=== PATIENT | male | born 1995 | race Caucasian/White ===

== ENCOUNTER 2018-07-28 20:14 | Emergency (ER) | payer SELFPAY ==
[2018-07-28 20:24] VITALS: BP 142/79
[2018-07-28] MEDS ORDERED: Fluorescein Sodium TOPICAL* 1 MG TEST STRIP OPHTHALMIC ONE (21:23)
[2018-07-28] MEDS ORDERED: Tetracaine 0.5% OPTH.SOL 15ML* BTL RIGHT EYE ONE (21:23)
[2018-07-28] MEDS ORDERED: Cyclopentolate 1% OPTH.SOL* 2 ML BTL RIGHT EYE ONE (21:24)
--- NOTE | 2018-07-28 21:34 | ED ---
Throat Pain/Nasal Congestion - HPI Summary HPI Summary: 22-year-old male presents with potential foreign body in right eye. He states his grinding last night and feels like he got something in his eye. He admits to some blurry vision. He states he has history of migraines feels like one of his migraines with this headache and some nausea. He states this does not feel like a corneal flash burn which he has had in the past. Doesn't wear glasses or contacts. tetanus up-to-date. Has no medical conditions. was seen in and had his eye staining and zaki lens placed - History of Current Complaint Chief Complaint: EDEyeProblem Time Seen by Provider: 07/28/18 21:17 - Allergies/Home Medications Allergies/Adverse Reactions: Allergies Allergy/AdvReac Type Severity Reaction Status Date / Time Dust Allergy Eyes Uncoded 01/27/15 21:10 Itchy/Swollen/Red/Watery Hay Allergy Eyes Uncoded 01/27/15 21:10 Itchy/Swollen/Red/Watery Home Medications: Home Medications NK [No Home Medications Reported] 07/28/18 [History Confirmed 07/28/18] PMH/Surg Hx/FS Hx/Imm Hx Endocrine/Hematology History: Denies: Hx Diabetes, Hx Thyroid Disease Cardiovascular History: Denies: Hx Congestive Heart Failure, Hx Deep Vein Thrombosis, Hx Hypertension , Hx Myocardial Infarction, Hx Pacemaker/ICD Respiratory History: Denies: Hx Asthma, Hx Chronic Obstructive Pulmonary Disease (COPD), Hx Lung Cancer, Hx Pneumonia, Hx Pulmonary Embolism GI History: Denies: Hx Gall Bladder Disease, Hx Gastrointestinal Bleed, Hx Ulcer, Hx Urosepsis History: Denies: Hx Kidney Stones, Hx Renal Disease Neurological History: Denies: Hx Dementia, Hx Migraine, Hx Seizures, Hx Transient Ischemic Attacks (TIA) Psychiatric History: Denies: Hx Anxiety, Hx Depression, Hx Schizophrenia, Hx Bipolar Disorder Infectious Disease History: Yes Infectious Disease History: Reports: Hx of 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 Denies: Hx Hepatitis, Hx Human Immunodeficiency Virus (HIV), History Other Infectious Disease, Traveled Outside the [place] in Last 30 Days - Family History Known Family History: Negative: Cardiac Disease, Hypertension, Diabetes - Social History Alcohol Use: Daily Substance Use Type: Reports: None Smoking Status (MU): Never Smoked Tobacco Type: Smokeless Tobacco Amount Used/How Often: 1-2 cans per day Length of Time of Smoking/Using Tobacco: Began at 12 years of age Have You Smoked in the Last Year: No Review of Systems Negative: Fever Positive: Photophobia, Blurred Vision Negative: Chest Pain Negative: Shortness Of Breath All Other Systems Reviewed And Are Negative: Yes Physical Exam Triage Information Reviewed: Yes Vital Signs On Initial Exam: Initial Vitals Temp Pulse Resp BP Pulse Ox 97.9 F 77 18 142/79 98 07/28/18 20:20 07/28/18 20:20 07/28/18 20:20 07/28/18 20:20 07/28/18 20:20 Vital Signs Reviewed: Yes Appearance: Positive: Well-Appearing Skin: Positive: Warm, Dry Head/Face: Positive: Normal Head/Face Inspection Eyes: Positive: EOMI, LINDSEY, Conjunctiva Inflammed, Other: - foreign body at 6 position ENT: Positive: Normal ENT inspection, Pharynx normal, TMs normal Respiratory/Lung Sounds: Positive: Clear to Auscultation, Breath Sounds Present Cardiovascular: Positive: Normal, RRR Musculoskeletal: Positive: Normal Neurological: Positive: Normal Psychiatric: Positive: Normal Procedures - Eye Procedure Right Alcaine Drops Administered: Yes - foreign body seen at 6 position Eye FB Removal: removal w/ cotton swab Cyclogel 2 Drops Administered: right eye Diagnostics - Vital Signs Vital Signs Temp Pulse Resp BP Pulse Ox 07/28/18 20:20 97.9 F 77 18 142/79 98 - Laboratory Lab Statement: Any lab studies that have been ordered have been reviewed, and results considered in the medical decision making process. EENT Course/Dx - Course Course Of Treatment: 22-year-old male presents with potential foreign body in right eye. He states his grinding last night and feels like he got something in his eye. He admits to some blurry vision. He states he has history of migraines feels like one of his migraines with this headache and some nausea. He states this does not feel like a corneal flash burn which he has had in the past. Doesn't wear glasses or contacts. tetanus up-to-date. Has no medical conditions. On exam right conjunctiva injected. foreign body with rust ring seen on right eye. removed part of foreign body with q tip. patient already has antibiotic drops. told follow up with optho. patient understand and agrees with plan. - Differential Diagnoses Differential Diagnoses: Conjunctivitis, Corneal Abrasion, Foreign Body - Diagnoses Provider Diagnoses: Foreign body in eyeball, right Discharge - Sign-Out/Discharge Documenting (check all that apply): Patient Departure Patient Received Moderate/Deep Sedation with Procedure: No - Discharge Plan Condition: Good Disposition: HOME Patient Education Materials: Eye Foreign Body (ED) Referrals: Casimiro Soriano MD [Medical Doctor] - Reyes Sin MD [Primary Care Provider] - Additional Instructions: follow up with optho tomorrow Continue antibiotic Take Tylenol or ibuprofen every 6 hours as needed for pain Return to ED if develop any new or worsening symptoms - Billing Disposition and Condition Condition: GOOD Disposition: Home
[2018-07-28] MEDS ORDERED: Tetracaine 0.5% OPTH.SOL 4 ML* 1 DROP BTL RIGHT EYE ONE (21:35)
[2018-07-28] MEDS ORDERED: Ketorolac INJ* 30 MG/ML 1 ML VIAL IM ONE (21:51)
== END 2018-07-28 22:09 | disposition home or self-care (01) ==
LOC: ED 20:14
DX: T15.01XA Foreign body in cornea, right eye, initial encounter (principal); X58.XXXA Exposure to other specified factors, initial encounter; Y92.9 Unspecified place or not applicable; F17.220 Nicotine dependence, chewing tobacco, uncomplicated
CPT/HCPCS: 65205; 65220; 96372; 99283; A9270-GY; J1885